=== PATIENT | male | born 1935 | race Caucasian/White ===

== ENCOUNTER → 2020-10-17 | Outpatient (CLI) | payer MEDICARE, BC ==
[~2020-10-17] MED LIST: ALAVERT10 M1 PO; CORDARONE200 MG/TAB PO; COUMADIN 3MG3 MG/TAB PO; COUMADIN4 MG PO; DITROPAN 5MG TAB5 MG PO; TOFRANIL 25MG T25 MG PO; ZOCOR 10MG10 MG PO
[2020-10-17 11:01] LABS: COLLECTION METHOD CLEAN CATCH
[2020-10-17 12:25] LABS: MUCOUS Present /lpf; PH 6 (5-8); SQUAMOUS EPITHELIAL None Seen /hpf; URINE APPEARANCE Cloudy; URINE BACTERIA Moderate /hpf; URINE BILIRUBIN Negative (NEGATIVE); URINE BLOOD Negative (NEGATIVE); URINE COLOR Yellow; URINE GLUCOSE Negative (NEGATIVE); URINE KETONE Negative (NEGATIVE); URINE LEUKOCYTE ESTERASE 2+ (NEGATIVE); URINE NITRATE Positive (NEGATIVE); URINE PROTEIN(semi-quant) Negative (NEGATIVE); URINE UROBILINOGEN >=4.0 mg/dL (NEGATIVE); URINE WBC >50 /hpf
== END ==
LOC: ZCOL.LAB 09:44
PROVIDERS: Family Medicine
DX: N39.0 Urinary tract infection, site not specified (principal)